=== PATIENT | male | born 1975 | race Caucasian/White ===

== ENCOUNTER 2016-11-30 11:50 | Emergency (ER) | payer MEDICAID, OTHER ==
[~2016-11-30 11:50] MED LIST: ALPR2TAB3 PO; CARI350T20 PO; CELE20TA PO; DOXY100C PO; FLEXERIL; HYDR-3713 PO; IBUP60TA PO; NICO21DI5 TD; PENI1TAB17 PO; TRAM50TA2; VICO5TAB16 PO; VITA50003 PO; XARE15TA PO; ZANT1TAB PO; ZOFR20TA PO
--- NOTE | 2016-11-30 12:51 | EDDOCDS ---
Physician Documentation [facility] Name: Rylan Da Silva Age: 40 yrs Sex: Male : 1975 Arrival Date: 11/30/2016 Time: 11:50 Bed Triage 2 Private MD: Monty Noble D Disposition: 11/30/16 12:43 Discharged to Home/Self Care. Impression: Local infection of the skin and subcutaneous tissue, unspecified - Right Axillary region. - Condition is Stable. - Prescriptions for Ibuprofen 600 mg Oral Tablet - take 1 tablet by ORAL route every 6 hours As needed take with food; 30 tablet. Bactrim DS 800- 160 mg Oral Tablet - take 2 tablet by ORAL route every 12 hours for 7 days; 28 tablet. - Medication Reconciliation, Local Pharmacy Hours form. - Follow up: Monty Noble; When: 1 - 2 days; Reason: Recheck today's complaints, Continuance of care. Follow up: Emergency Department; Reason: Worsening of conditions. - Problem is new. - Symptoms are unchanged. Historical: - Allergies: No known drug Allergies; - Home Meds: 1. olanzapine 10 mg oral tab 1 tab once daily HS - PMHx: Anxiety; chronic back pain; DVT; - PSHx: left arm abscess removed; - Social history: Smoking status: Patient uses tobacco products, light tobacco smoker. No barriers to communication noted, The patient speaks fluent Greenlandic, Speaks appropriately for age. - Family history: Not pertinent. - : The pt / caregiver states he / she is not on anticoagulants. Home medication list is obtained from the patient. - Exposure Risk Screening:: None identified. Vital Signs: 11/30 11:51 BP 145 / 84 LA Sitting (auto/reg); Pulse 96 LA; Resp 18 S; Temp 97.5(O); Pulse Ox 99% mt4 on R/A; Weight 83.91 kg / 184.99 lbs (R); Height 5 ft. 11 in. (180.34 cm) (R); Pain 9/10; 11:51 Body Mass Index 25.80 (83.91 kg, 180.34 cm) mt4 MDM: 12:17 [facility] Payment Agreement was scanned into [employer] and attached to record. 12:35 Financial registration complete. Signatures: Gilma Foster, Reg Reg lg Gala Flores,RN RN jo3 Judith Tran, PA-C PA-C ef1 Anahy Sheehan RN RN pml The chart was reviewed and I authenticate all verbal orders and agree with the evaluation and treatment provided.Attachments: 12:17 [facility] Payment Agreement lg MTDD
--- NOTE | 2016-11-30 12:51 | EDDOCDS ---
Nurse's Notes [facility] Name: Rylan Da Silva Age: 40 yrs Sex: Male : 1975 Arrival Date: 11/30/2016 Time: 11:50 Bed Triage 2 Private MD: Monty Noble D Diagnosis: Local infection of the skin and subcutaneous tissue, unspecified-Right Axillary region Presentation: 11/30 12:00 Presenting complaint: Patient states: Large reddened lump under right axilla. Has had a jo3 small lump there off and on for two years. Opened up and drained two years ago. Adult Sepsis Screening: The patient does not have new or worsening altered mentation. Adult Sepsis Screening: Systolic blood pressure is greater than 100. Patient has a qSOFA score of 0- Negative Sepsis Screen. Suicide/Homicide risk assessment- the patient denies having any suicidal and/or homicidal ideations and does not present with any other emotional, behavioral or mental health complaints. Status: Patient is not a employee service officer or dependent. Transition of care: patient was not received from another setting of care. 12:00 Acuity: ROSIE Level 3 jo3 12:00 Method Of Arrival: Walkin/Carried/Asstd jo3 Triage Assessment: 12:06 General: Appears in no apparent distress, Behavior is appropriate for age, cooperative. jo3 Pain: Pain currently is 9 out of 10 on a pain scale. HIV screening NA for this visit Offered previously. Neurological: Level of Consciousness is awake, alert, Oriented to person, place, time. Respiratory: No deficits noted. Airway is patent Respiratory effort is even, unlabored. Historical: - Allergies: No known drug Allergies; - Home Meds: 1. olanzapine 10 mg oral tab 1 tab once daily HS - PMHx: Anxiety; chronic back pain; DVT; - PSHx: left arm abscess removed; - Social history: Smoking status: Patient uses tobacco products, light tobacco smoker. No barriers to communication noted, The patient speaks fluent Turkish, Speaks appropriately for age. - Family history: Not pertinent. - : The pt / caregiver states he / she is not on anticoagulants. Home medication list is obtained from the patient. - Exposure Risk Screening:: None identified. Screenin:12 Screening information is obtained from the patient. Fall risk: No risks identified. kr3 Assistance ADL's: requires no assistance with activities of daily living. Abuse/DV Screen: The patient / caregiver reports he/she is: not in a situation that causes fear, pain or injury. Nutritional screening: No deficits noted. Advance Directives: Currently, there is no health care proxy. home support is adequate. Assessment: 12:11 General: Appears uncomfortable. Pain: Location: right axilla. Derm: large red swollen kr3 area right axilla. 12:49 General: Appears in no apparent distress, Behavior is appropriate for age, cooperative. pml Pain: Location: right axilla Pain currently is 10 out of 10 on a pain scale. Neurological: Level of Consciousness is awake, alert, Oriented to person, place, time. Cardiovascular: Capillary refill < 3 seconds. Respiratory: Airway is patent Respiratory effort is even, unlabored, Respiratory pattern is regular, symmetrical. Derm: Skin is pink, warm & dry. Vital Signs: 11:51 BP 145 / 84 LA Sitting (auto/reg); Pulse 96 LA; Resp 18 S; Temp 97.5(O); Pulse Ox 99% mt4 on R/A; Weight 83.91 kg (R); Height 5 ft. 11 in. (180.34 cm) (R); Pain 9/10; 11:51 Body Mass Index 25.80 (83.91 kg, 180.34 cm) mt4 Vitals: 11:51 Log In Time: November 30, 2016 at 11:50. mt4 ED Course: 11:50 Patient visited by Monserrat Rivera. mt4 11:50 Patient moved to Waiting mt4 11:51 Monty Noble is Private Physician. mt4 11:53 Patient moved to Pre RCE mt4 12:03 Triage Initiated jo3 12:08 Patient visited by Gala Flores RN. jo3 12:09 Patient moved to Triage 2 jo3 12:17 Patient name changed from Rylan\S\J\S\Rekha Iii\S\ to Rylan\S\J\S\Rekha. EDMS 12:17 [facility] Payment Agreement was scanned into [employer] and attached to record. lg 12:27 Judith Tran PA-C [facility]. ef1 12:27 Ken Tate MD is Attending Physician. ef1 12:28 Patient visited by Judith Tran PA-C. ef1 12:43 Monty Noble is Referral Physician. ef1 12:49 The patient / caregiver is instructed regarding the plan of care and ED course. Patient pml has correct armband on for positive identification. Placed in gown. Bed in low position. Call light in reach. Side rails up X2. 12:49 No IV's were initiated during this patient's visit. No procedures done that require pml assistance. Order Results: There are currently no results for this order. Outcome: 12:43 Discharge ordered by Provider. ef1 12:49 Discharge Assessment: Patient awake, alert and oriented x 3. No cognitive and/or pml functional deficits noted. Patient verbalized understanding of disposition instructions. patient administered narcotics - no. The following High Risk Discharge criteria are identified: None. Discharged to home ambulatory. Condition: good Condition: stable. Discharge instructions given to patient, Instructed on discharge instructions, follow up and referral plans. medication usage, wound care, Demonstrated understanding of instructions, medications, Pt was receptive of discharge instructions/ teaching. Prescriptions given X 2. No special radiology studies were completed. Property sent home with patient. 12:50 Patient left the ED. pml Signatures: Dispatcher [employer] EDMS Gilma Foster, Reg Reg lg Saba Huerta,RN RN olegario3 Gala FloresRN RN Monserrat Campbell mt4 Judith Tran PA-C PA-C ef1 Anahy Sheehan RN RN pml MTDD
--- NOTE | 2016-12-02 13:52 | EDDOCDS ---
Physician Documentation [facility] Name: Rylan Da Silva Age: 40 yrs Sex: Male : 1975 Arrival Date: 11/30/2016 Time: 11:50 Bed Triage 2 Private MD: Monty Noble D Disposition: 11/30/16 12:43 Discharged to Home/Self Care. Impression: Local infection of the skin and subcutaneous tissue, unspecified - Right Axillary region. - Condition is Stable. - Prescriptions for Ibuprofen 600 mg Oral Tablet - take 1 tablet by ORAL route every 6 hours As needed take with food; 30 tablet. Bactrim DS 800- 160 mg Oral Tablet - take 2 tablet by ORAL route every 12 hours for 7 days; 28 tablet. - Medication Reconciliation, Local Pharmacy Hours form. - Follow up: Monty Noble; When: 1 - 2 days; Reason: Recheck today's complaints, Continuance of care. Follow up: Emergency Department; Reason: Worsening of conditions. - Problem is new. - Symptoms are unchanged. Historical: - Allergies: No known drug Allergies; - Home Meds: 1. olanzapine 10 mg oral tab 1 tab once daily HS - PMHx: Anxiety; chronic back pain; DVT; - PSHx: left arm abscess removed; - Social history: Smoking status: Patient uses tobacco products, light tobacco smoker. No barriers to communication noted, The patient speaks fluent Macedonian, Speaks appropriately for age. - Family history: Not pertinent. - : The pt / caregiver states he / she is not on anticoagulants. Home medication list is obtained from the patient. - Exposure Risk Screening:: None identified. Vital Signs: 11/30 11:51 BP 145 / 84 LA Sitting (auto/reg); Pulse 96 LA; Resp 18 S; Temp 97.5(O); Pulse Ox 99% mt4 on R/A; Weight 83.91 kg / 184.99 lbs (R); Height 5 ft. 11 in. (180.34 cm) (R); Pain 9/10; 11:51 Body Mass Index 25.80 (83.91 kg, 180.34 cm) mt4 MDM: 12:17 [facility] Payment Agreement was scanned into [employer] and attached to record. lg 12:35 Financial registration complete. lg 19:39 T-Sheet-- Draft Copy was scanned into [employer] and attached to record. klr Signatures: Gilma Foster, Reg Reg lg Gala Flores RN RN jo3 Judith Tran, PASholaC PASholaC ef1 Anahy Sheehan RN RN pml Redder, Kathie klr The chart was reviewed and I authenticate all verbal orders and agree with the evaluation and treatment provided.Attachments: 12:17 [facility] [place] lg 19:39 T-Sheet-- Draft Copy klr Chart Complete MTDD
--- NOTE | 2016-12-02 13:52 | EDDOCDS ---
Nurse's Notes [facility] Name: Rylan Da Silva Age: 40 yrs Sex: Male : 1975 Arrival Date: 11/30/2016 Time: 11:50 Bed Triage 2 Private MD: Monty Noble D Diagnosis: Local infection of the skin and subcutaneous tissue, unspecified-Right Axillary region Presentation: 11/30 12:00 Presenting complaint: Patient states: Large reddened lump under right axilla. Has had a jo3 small lump there off and on for two years. Opened up and drained two years ago. Adult Sepsis Screening: The patient does not have new or worsening altered mentation. Adult Sepsis Screening: Systolic blood pressure is greater than 100. Patient has a qSOFA score of 0- Negative Sepsis Screen. Suicide/Homicide risk assessment- the patient denies having any suicidal and/or homicidal ideations and does not present with any other emotional, behavioral or mental health complaints. Status: Patient is not a creative services writer or dependent. Transition of care: patient was not received from another setting of care. 12:00 Acuity: ROSIE Level 3 jo3 12:00 Method Of Arrival: Walkin/Carried/Asstd jo3 Triage Assessment: 12:06 General: Appears in no apparent distress, Behavior is appropriate for age, cooperative. jo3 Pain: Pain currently is 9 out of 10 on a pain scale. HIV screening NA for this visit Offered previously. Neurological: Level of Consciousness is awake, alert, Oriented to person, place, time. Respiratory: No deficits noted. Airway is patent Respiratory effort is even, unlabored. Historical: - Allergies: No known drug Allergies; - Home Meds: 1. olanzapine 10 mg oral tab 1 tab once daily HS - PMHx: Anxiety; chronic back pain; DVT; - PSHx: left arm abscess removed; - Social history: Smoking status: Patient uses tobacco products, light tobacco smoker. No barriers to communication noted, The patient speaks fluent Chinese, Speaks appropriately for age. - Family history: Not pertinent. - : The pt / caregiver states he / she is not on anticoagulants. Home medication list is obtained from the patient. - Exposure Risk Screening:: None identified. Screenin:12 Screening information is obtained from the patient. Fall risk: No risks identified. kr3 Assistance ADL's: requires no assistance with activities of daily living. Abuse/DV Screen: The patient / caregiver reports he/she is: not in a situation that causes fear, pain or injury. Nutritional screening: No deficits noted. Advance Directives: Currently, there is no health care proxy. home support is adequate. Assessment: 12:11 General: Appears uncomfortable. Pain: Location: right axilla. Derm: large red swollen kr3 area right axilla. 12:49 General: Appears in no apparent distress, Behavior is appropriate for age, cooperative. pml Pain: Location: right axilla Pain currently is 10 out of 10 on a pain scale. Neurological: Level of Consciousness is awake, alert, Oriented to person, place, time. Cardiovascular: Capillary refill < 3 seconds. Respiratory: Airway is patent Respiratory effort is even, unlabored, Respiratory pattern is regular, symmetrical. Derm: Skin is pink, warm & dry. Vital Signs: 11:51 BP 145 / 84 LA Sitting (auto/reg); Pulse 96 LA; Resp 18 S; Temp 97.5(O); Pulse Ox 99% mt4 on R/A; Weight 83.91 kg (R); Height 5 ft. 11 in. (180.34 cm) (R); Pain 9/10; 11:51 Body Mass Index 25.80 (83.91 kg, 180.34 cm) mt4 Vitals: 11:51 Log In Time: November 30, 2016 at 11:50. mt4 ED Course: 11:50 Patient visited by Monserrat Rivera. mt4 11:50 Patient moved to Waiting mt4 11:51 Monty Noble is Private Physician. mt4 11:53 Patient moved to Pre RCE mt4 12:03 Triage Initiated jo3 12:08 Patient visited by Gala Flores RN. jo3 12:09 Patient moved to Triage 2 jo3 12:17 Patient name changed from Rylan\S\J\S\Rekha Iii\S\ to Rylan\S\J\S\Rekha. EDMS 12:17 [facility] Payment Agreement was scanned into [id number] and attached to record. lg 12:27 Judith Tr[facility]-C [facility] ef1 12:27 Ken Tate MD is Attending Physician. ef1 12:28 Patient visited by Judith Tran PA-C. ef1 12:43 Monty Noble is Referral Physician. ef1 12:49 The patient / caregiver is instructed regarding the plan of care and ED course. Patient pml has correct armband on for positive identification. Placed in gown. Bed in low position. Call light in reach. Side rails up X2. 12:49 No IV's were initiated during this patient's visit. No procedures done that require pml assistance. 19:39 T-Sheet-- Draft Copy was scanned into [id number] and attached to record. klr Order Results: There are currently no results for this order. Outcome: 12:43 Discharge ordered by Provider. ef1 12:49 Discharge Assessment: Patient awake, alert and oriented x 3. No cognitive and/or pml functional deficits noted. Patient verbalized understanding of disposition instructions. patient administered narcotics - no. The following High Risk Discharge criteria are identified: None. Discharged to home ambulatory. Condition: good Condition: stable. Discharge instructions given to patient, Instructed on discharge instructions, follow up and referral plans. medication usage, wound care, Demonstrated understanding of instructions, medications, Pt was receptive of discharge instructions/ teaching. Prescriptions given X 2. No special radiology studies were completed. Property sent home with patient. 12:50 Patient left the ED. pml Signatures: Dispatcher [employer] EDMS Gilma Foster, Saba Blackburn lg,RN RN olegario3 Gala Flores RN RN wayne3 Monserrat Rivera mt4 Judith Tran PA-C PA-C ef1 Anahy Sheehan RN RN pml Redder, Kathie klr Chart Complete MTDD
--- NOTE | 2016-12-02 13:52 | EDDOCDS ---
Physician Documentation [facility] Name: Rylan Da Silva Age: 40 yrs Sex: Male : 1975 Arrival Date: 11/30/2016 Time: 11:50 Bed Triage 2 Private MD: Monty Noble D Disposition: 11/30/16 12:43 Discharged to Home/Self Care. Impression: Local infection of the skin and subcutaneous tissue, unspecified - Right Axillary region. - Condition is Stable. - Prescriptions for Ibuprofen 600 mg Oral Tablet - take 1 tablet by ORAL route every 6 hours As needed take with food; 30 tablet. Bactrim DS 800- 160 mg Oral Tablet - take 2 tablet by ORAL route every 12 hours for 7 days; 28 tablet. - Medication Reconciliation, Local Pharmacy Hours form. - Follow up: Monty Noble; When: 1 - 2 days; Reason: Recheck today's complaints, Continuance of care. Follow up: Emergency Department; Reason: Worsening of conditions. - Problem is new. - Symptoms are unchanged. Historical: - Allergies: No known drug Allergies; - Home Meds: 1. olanzapine 10 mg oral tab 1 tab once daily HS - PMHx: Anxiety; chronic back pain; DVT; - PSHx: left arm abscess removed; - Social history: Smoking status: Patient uses tobacco products, light tobacco smoker. No barriers to communication noted, The patient speaks fluent Belarusian, Speaks appropriately for age. - Family history: Not pertinent. - : The pt / caregiver states he / she is not on anticoagulants. Home medication list is obtained from the patient. - Exposure Risk Screening:: None identified. Vital Signs: 11/30 11:51 BP 145 / 84 LA Sitting (auto/reg); Pulse 96 LA; Resp 18 S; Temp 97.5(O); Pulse Ox 99% mt4 on R/A; Weight 83.91 kg / 184.99 lbs (R); Height 5 ft. 11 in. (180.34 cm) (R); Pain 9/10; 11:51 Body Mass Index 25.80 (83.91 kg, 180.34 cm) mt4 MDM: 12:17 [facility] Payment Agreement was scanned into [employer] and attached to record. lg 12:35 Financial registration complete. lg 19:39 T-Sheet-- Draft Copy was scanned into [employer] and attached to record. klr Signatures: Gilma Foster, Reg Reg lg Gala Flores RN RN jo3 Judith Tran, PASholaC PASholaC ef1 Anahy Sheehan RN RN pml Redder, Kathie klr The chart was reviewed and I authenticate all verbal orders and agree with the evaluation and treatment provided.Attachments: 12:17 [facility] [place] Payment Agreement lg 19:39 T-Sheet-- Draft Copy klr Chart Complete MTDD
== END 2016-11-30 12:50 | disposition home or self-care (01) ==
LOC: M ED 11:50
DX: L08.9 Local infection of the skin and subcutaneous tissue, unspecified (principal); F41.9 Anxiety disorder, unspecified; G89.29 Other chronic pain; M54.9 Dorsalgia, unspecified; F17.210 Nicotine dependence, cigarettes, uncomplicated; Z86.718 Personal history of other venous thrombosis and embolism; Z79.899 Other long term (current) drug therapy

== ENCOUNTER → 2017-01-29 | Outpatient (CLI) | payer OTHER ==
[2017-01-29 13:35] LABS: MEAN CORPUSCULAR HEMOGLOBIN 32.5 pg (27.0-33.0); MEAN CORPUSCULAR VOLUME 95.7 fl (80.0-96.0); RED CELL DISTRIBUTION WIDTH 11.8 % (11.5-14.5); WHITE BLOOD COUNT 6.7 K/mm3 (4.0-10.0)
[2017-01-29 14:37] LABS: VITAMIN B12 LEVEL 465 PG/ML (247-911)
[2017-01-29 14:40] LABS: ALBUMIN 3.8 GM/DL (3.2-5.2); ALBUMIN/GLOBULIN RATIO 1.09 (1.00-1.93); ALKALINE PHOSPHATASE 61 U/L (45-117); ALT/SGPT 31 U/L (12-78); ANION GAP 6 MEQ/L (8-16); AST/SGOT 21 U/L (15-37); BILIRUBIN,DIRECT 0.2 MG/DL (0.0-0.2); BILIRUBIN,TOTAL 0.5 MG/DL (0.2-1.0); BLOOD UREA NITROGEN 10 MG/DL (7-18); CALCIUM LEVEL 9.1 MG/DL (8.5-10.1); CARBON DIOXIDE LEVEL 25 MEQ/L (21-32); CHLORIDE LEVEL 110 MEQ/L (98-107); CREATININE FOR GFR 0.99 MG/DL (0.70-1.30); FREE T4 1.11 NG/DL (0.76-1.46); GLOMERULAR FILTRATION RATE > 60.0 (>60); GLUCOSE, FASTING 104 MG/DL (70-105); IMMUNOGLOBULIN M 141 MG/DL (40-230); POTASSIUM SERUM 4.2 MEQ/L (3.5-5.1); SODIUM LEVEL 141 MEQ/L (136-145); TOTAL PROTEIN 7.3 GM/DL (6.4-8.2)
[2017-02-03 00:06] LABS: B. HENSELAE IgG (CAT SCRATCH) Negative titer (Neg:<1:320); B. HENSELAE IgM (CAT SCRATCH) Negative titer (Neg:<1:100); B. QUINTANA IgG (CAT SCRATCH) Negative titer (Neg:<1:320); B. QUINTANA IgM (CAT SCRATCH) Negative titer (Neg:<1:100); BABESIOSIS LEVEL IGG <1:10 (Neg:<1:10); BABESIOSIS LEVEL IGM <1:10 (Neg:<1:10); E CHAFFEENSIS IgG TITER Negative (Neg:<1:64); E CHAFFEENSIS IgM TITER Negative (Neg:<1:20); HUMAN GRANULCYTIC EHRLIC IgG Negative (Neg:<1:64); HUMAN GRANULCYTIC EHRLIC IgM Negative (Neg:<1:20); Lyme Disease IgG/IgM Antibodie <0.91 ISR (0.00-0.90); Lyme Disease IgM Ab Quantitati <0.80 index (0.00-0.79)
== END ==
LOC: M LAB 12:21
PROVIDERS: ATTEND Nurse Practitioner Psychiatric/Mental Health
DX: Z79.899 Other long term (current) drug therapy (principal)

== ENCOUNTER 2017-02-16 13:25 | Emergency (ER) | payer OTHER ==
[~2017-02-16] VITALS: Ht 180.3 cm; Wt 74.8 kg
[2017-02-16 13:26] VITALS: BP 119/73
[2017-02-16] MEDS ORDERED: ZYPR10TA PO (13:42)
[2017-02-16] MEDS ORDERED: CLON-412 PO (13:42)
[2017-02-16] MEDS ORDERED: WELLTAB40 PO (13:42)
== END 2017-02-16 14:20 | disposition home or self-care (01) ==
LOC: M ED 14:18
DX: L73.2 Hidradenitis suppurativa (principal); N62 Hypertrophy of breast; I10 Essential (primary) hypertension; B19.20 Unspecified viral hepatitis C without hepatic coma; M54.9 Dorsalgia, unspecified; F31.9 Bipolar disorder, unspecified; F41.9 Anxiety disorder, unspecified; Z79.899 Other long term (current) drug therapy; Z88.8 Allergy status to other drugs, medicaments and biological substances

== ENCOUNTER → 2017-04-29 | Outpatient (REF) ==
[~2017-04-29] MED LIST changes: +CLON-412 PO; +LITH150C PO; +NAPR500T PO; +WELLTAB40 PO; +ZYPR10TA PO
--- NOTE | 2017-04-30 02:56 | REP ---
Clinical: Pain and disability. Technique: AP, lateral, coned-down views of the lumbar spine. Findings: Three views of the lumbosacral spine demonstrate satisfactory alignment and lordosis without acute fracture / compression injury or subluxation. Mild endplate sclerosis and disc space narrowing primarily noted at the L5-S1 level. Impression: Mild disc space narrowing predominantly noted at the L5-S1 level. No acute fracture / compression injury or subluxation. Signed by Eliud Kaye MD 04/30/2017 02:48 A
--- NOTE | 2017-04-30 02:59 | REP ---
Clinical: Pain and disability. Technique: AP, lateral, open mouth views of the cervical spine. Findings: Alignment and lordosis maintained. No evidence for acute or healed fracture/compression injury. No subluxation. Moderate endplate sclerosis and disc space narrowing at the C5-6 level noted along with minimal disc space narrowing at the C4-5 level. Spinous processes are intact and normal. Open mouth view demonstrates normal C1-C2 articulation and odontoid process. Impression: Mild to moderate degenerative changes primarily involving the C5-6 and C4-5 levels. Signed by Eliud Kaye MD 04/30/2017 02:50 A
== END ==
LOC: M SMT 10:40
PROVIDERS: ATTEND Internal Medicine
DX: Z02.89 Encounter for other administrative examinations (principal)

== ENCOUNTER 2017-05-04 16:17 | Emergency (ER) | payer OTHER ==
[~2017-05-04] VITALS: Ht 180.3 cm; Wt 82.4 kg
[~2017-05-04 16:17] MED LIST changes: +CARI350T PO; -CARI350T20 PO; -LITH150C PO; -NAPR500T PO; +VITA1CAP40 PO; -VITA50003 PO
[2017-05-04] MEDS ORDERED: LITH150C PO (16:32)
[2017-05-04] MEDS ORDERED: NORCO, ANEXSIA 5/325MG TABLET (HYDROcodone/ACETAMINOPHEN) PO ONE (17:00)
--- NOTE | 2017-05-04 17:24 | REP ---
Clinical: Pain . Technique: Internal rotation, external rotation, and Y view left shoulder . Findings: No acute fracture or dislocation. The acromioclavicular and glenohumeral joints are intact. No periarticular calcifications or degenerative changes are appreciated. Sub acromial space is normal. Surrounding soft tissues are unremarkable. Impression: Normal age-appropriate left shoulder radiographs. Signed by Eliud Kaye MD 05/04/2017 05:16 P
[2017-05-04 18:03] VITALS: BP 120/71
[2017-05-04] MEDS ORDERED: NAPR500T PO (18:03)
== END 2017-05-04 18:17 | disposition home or self-care (01) ==
LOC: M ED 17:03
DX: M75.42 Impingement syndrome of left shoulder (principal); F17.210 Nicotine dependence, cigarettes, uncomplicated; Z79.899 Other long term (current) drug therapy; Z88.8 Allergy status to other drugs, medicaments and biological substances

== ENCOUNTER → 2017-05-26 | Outpatient (CLI) | payer OTHER ==
[~2017-05-26] MED LIST changes: +LITH150C PO; +NAPR500T PO
[2017-05-26 14:51] LABS: LITHIUM LEVEL 0.39 MEQ/L (0.60-1.20)
== END ==
LOC: M LAB 13:18
PROVIDERS: ATTEND Psychiatry & Neurology Psychiatry
DX: Z79.899 Other long term (current) drug therapy (principal)

== ENCOUNTER → 2017-07-09 | Outpatient (CLI) | payer OTHER ==
[2017-07-09 12:57] LABS: MEAN CORPUSCULAR HEMOGLOBIN 33.9 pg (27.0-33.0); MEAN CORPUSCULAR HGB CONC 34.8 g/dl (32.0-36.5); MEAN CORPUSCULAR VOLUME 97.2 fl (80.0-96.0); WHITE BLOOD COUNT 9.2 K/mm3 (4.0-10.0)
[2017-07-09 14:12] LABS: ALBUMIN 3.9 GM/DL (3.2-5.2); ALBUMIN/GLOBULIN RATIO 0.98 (1.00-1.93); ALKALINE PHOSPHATASE 66 U/L (45-117); ALT/SGPT 89 U/L (12-78); ANION GAP 6 MEQ/L (8-16); AST/SGOT 52 U/L (15-37); BILIRUBIN,TOTAL 0.4 MG/DL (0.2-1.0); BLOOD UREA NITROGEN 9 MG/DL (7-18); CALCIUM LEVEL 9.5 MG/DL (8.5-10.1); CARBON DIOXIDE LEVEL 29 MEQ/L (21-32); CHLORIDE LEVEL 105 MEQ/L (98-107); CHOLESTEROL LEVEL 193 MG/DL (<200); CREATININE FOR GFR 0.86 MG/DL (0.70-1.30); FREE T4 1.02 NG/DL (0.76-1.46); GLOMERULAR FILTRATION RATE > 60.0 (>60); GLUCOSE, FASTING 86 MG/DL (70-105); POTASSIUM SERUM 4.1 MEQ/L (3.5-5.1); SODIUM LEVEL 140 MEQ/L (136-145); TOTAL PROTEIN 7.9 GM/DL (6.4-8.2); TRIGLYCERIDES LEVEL 354 MG/DL (<150)
--- NOTE | 2017-07-09 20:57 | ECGEPIP ---
Stationary ECG Study [facility] Test Date: 2017-07-09 Pat Name: PATRICIA MACIAS Department: Room: - Gender: M Folding Machine Operator: SUNSHINE : 1975 Requested By: Amber Montalvo [facility] Order Number: [id number] Reading MD: Bernardo Jenkins Measurements Intervals [place] Rate: 79 P: 47 MN: 116 QRS: 84 QRSD: 118 T: 48 QT: 404 QTc: 464 Interpretive Statements SINUS RHYTHM WITH SHORT MN INTERVAL MODERATE INTRAVENTRICULAR CONDUCTION DELAY ST ELEVATION CONSISTENT WITH INJURY, PERICARDITIS, OR EARLY REPOLARIZATION No prior ECG available for comparison at the time of interpretation. Electronically Signed On 07-09-2017 20:57:12 EDT by Bernardo Jenkins
[2017-07-10 11:22] LABS: THYROID PEROXIDASE ANTIBODY < 28.0 U/ML (<60.0)
--- NOTE | 2017-07-10 14:28 | REP ---
Clinical: Chest pain . Comparison: 10/19/2013, 07/23/2011. Technique: PA and lateral. Findings: The mediastinum and cardiac silhouette are normal. The lung botello are clear and without acute consolidation, effusion, or pneumothorax. The skeletal structures are intact and normal. Impression: 1. No acute cardiopulmonary process. Signed by Eliud Kaye MD 07/09/2017 08:41 P
[2017-07-16 00:06] LABS: ALT 78 IU/L (0-55); FIBROSIS STAGE F0-F1 (.); GGT 56 IU/L (0-65); HAPTOGLOBIN 99 mg/dL (34-200); HEPATITIS C QUANTITATION 1621840 IU/mL (.); HEPATITIS C VIRUS GENOTYPE 1a (.); NECROINFLAM SCORE 0.44 (0.00-0.17); NECROINFLAMM GRADE A1-A2 (.); TOTAL BILIRUBIN 0.3 mg/dL (0.0-1.2)
== END ==
LOC: M LAB 11:00
PROVIDERS: ATTEND Nurse Practitioner Family
DX: R07.9 Chest pain, unspecified (principal); Z13.220 Encounter for screening for lipoid disorders; B17.10 Acute hepatitis C without hepatic coma; R89.1 Abnormal level of hormones in specimens from other organs, systems and tissues; R39.11 Hesitancy of micturition

== ENCOUNTER → 2017-07-09 | Outpatient (CLI) | payer OTHER ==
[2017-07-09 14:20] LABS: ALBUMIN 3.9 GM/DL (3.2-5.2); ALKALINE PHOSPHATASE 65 U/L (45-117); ALT/SGPT 88 U/L (12-78); ANION GAP 9 MEQ/L (8-16); AST/SGOT 53 U/L (15-37); BILIRUBIN,TOTAL 0.3 MG/DL (0.2-1.0); BLOOD UREA NITROGEN 10 MG/DL (7-18); CALCIUM LEVEL 9.5 MG/DL (8.5-10.1); CARBON DIOXIDE LEVEL 26 MEQ/L (21-32); CHLORIDE LEVEL 104 MEQ/L (98-107); CREATININE FOR GFR 0.91 MG/DL (0.70-1.30); GLOMERULAR FILTRATION RATE > 60.0 (>60); GLUCOSE, FASTING 90 MG/DL (70-105); POTASSIUM SERUM 4.1 MEQ/L (3.5-5.1); SODIUM LEVEL 139 MEQ/L (136-145); TOTAL PROTEIN 7.8 GM/DL (6.4-8.2)
[2017-07-09 14:21] LABS: LITHIUM LEVEL 0.65 MEQ/L (0.60-1.20)
== END ==
LOC: M LAB 11:05
PROVIDERS: ATTEND Psychiatry & Neurology Psychiatry
DX: Z79.899 Other long term (current) drug therapy (principal)

== ENCOUNTER → 2017-08-25 | Outpatient (REF) | payer OTHER ==
[2017-08-25 16:10] LABS: ALBUMIN 4.3 GM/DL (3.2-5.2); ALBUMIN/GLOBULIN RATIO 1.26 (1.00-1.93); ALKALINE PHOSPHATASE 60 U/L (45-117); ALT/SGPT 62 U/L (12-78); AST/SGOT 32 U/L (15-37); BILIRUBIN,DIRECT 0.1 MG/DL (0.0-0.2); BILIRUBIN,TOTAL 0.5 MG/DL (0.2-1.0); TOTAL PROTEIN 7.7 GM/DL (6.4-8.2)
[2017-08-26 10:52] LABS: HEPATITIS B SURFACE ANTIBODY NEGATIVE (POSITIVE)
[2017-09-09 00:06] LABS: HCV GENOTYPE REFLEX NS5QA Indicated (.); HEPATITIS C GENOTYPE 1a (.); HEPATITIS C QUANTITATION 488430 IU/mL (.)
== END ==
LOC: M SFHCPLAZ 13:55
PROVIDERS: ATTEND Internal Medicine Infectious Disease
DX: B18.2 Chronic viral hepatitis C (principal)

== ENCOUNTER → 2017-11-25 | Outpatient (REF) | payer OTHER, MEDICAID | LOC: M LAB REF 20:17 | DX: F11.10 Opioid abuse, uncomplicated (principal) ==

== ENCOUNTER → 2017-12-02 | Outpatient (REF) | payer OTHER, MEDICAID ==
[2017-12-08 00:07] LABS: AMPHETAMINE SCREEN, URINE See Final Results ng/mL (Cutoff=1000); AMPHETAMINE, URINE GC/MS 3930 ng/mL (Cutoff=500); AMPHETAMINES , URINE Positive (.); AMPHETAMINES , URINE Positive (Cutoff=1000); BARBITURATES SCREEN, URINE Negative ng/mL (Cutoff=200); BENZODIAZEPINES, URINE SCREEN Negative ng/mL (Cutoff=200); CANNABINOID SCREEN, URINE Negative ng/mL (Cutoff=20); COCAINE SCREEN, URINE Negative ng/mL (Cutoff=300); CODEINE, URINE Negative (Cutoff=100); CREATININE, URINE 108.2 mg/dL (20.0-300.0); FENTANYL URINE Positive (.); FENTANYL URINE CONFIRM 15040 pg/mL (Cutoff=500); FENTANYL URINE SCREEN See Final Results pg/mL (Cutoff=2000); FENTANYL/NORFENTANYL Positive (Cutoff=2000); HYDROCODONE, URINE Negative (Cutoff=100); HYDROMORPHONE, URINE Negative (Cutoff=100); METHADONE, URINE SCREEN Negative ng/mL (Cutoff=300); METHAMPHETAMINE, URINE Positive (.); METHAMPHETAMINE, URINE GC/MS 20530 ng/mL (Cutoff=500); MORPHINE CONFIRM, URINE 5527 ng/mL (Cutoff=100); MORPHINE, URINE Positive (.); NALOXONE RESULT Negative (.); NORFENTANYL URINE Positive (.); NORFENTANYL URINE CONFIRM 432650 pg/mL (Cutoff=500); OPIATE SCREEN, URINE See Final Results ng/mL (Cutoff=300); OPIATES, URINE Positive ng/mL (Cutoff=300); OXYCODONE, SCREEN, URINE Negative ng/mL (Cutoff=100); PCP SCREEN, URINE Negative ng/mL (Cutoff=25); URINE BUPRENORPHINE Negative ng/mL (Cutoff=10); pH, URINE 6.1 (4.5-8.9)
== END ==
LOC: M LAB REF 19:36
DX: F11.10 Opioid abuse, uncomplicated (principal)
CPT/HCPCS: 80362

== ENCOUNTER 2018-01-11 11:14 | Emergency (ER) | payer OTHER, MEDICAID | END 2018-01-11 12:45 | disposition home or self-care (01) | LOC: M ED 11:14 | DX: J01.90 Acute sinusitis, unspecified (principal); I10 Essential (primary) hypertension; F17.210 Nicotine dependence, cigarettes, uncomplicated; Z79.899 Other long term (current) drug therapy; Z88.8 Allergy status to other drugs, medicaments and biological substances; Z86.718 Personal history of other venous thrombosis and embolism; Z98.890 Other specified postprocedural states | CPT/HCPCS: 99283 ==

== ENCOUNTER → 2018-01-11 | Outpatient (REF) | payer OTHER, MEDICAID | LOC: M LAB REF 19:23 | DX: F11.10 Opioid abuse, uncomplicated (principal) ==

== ENCOUNTER → 2018-01-19 | Outpatient (REF) | payer OTHER, MEDICAID ==
[2018-01-24 00:09] LABS: AMPHETAMINE SCREEN, URINE Negative ng/mL (Cutoff=1000); BARBITURATES SCREEN, URINE Negative ng/mL (Cutoff=200); BENZODIAZEPINES, URINE SCREEN Negative ng/mL (Cutoff=200); CANNABINOID SCREEN, URINE Negative ng/mL (Cutoff=20); COCAINE SCREEN, URINE Negative ng/mL (Cutoff=300); CREATININE, URINE 22.8 mg/dL (20.0-300.0); FENTANYL URINE SCREEN Negative pg/mL (Cutoff=2000); METHADONE, URINE SCREEN Negative ng/mL (Cutoff=300); NALOXONE RESULT Negative (.); OPIATE SCREEN, URINE Negative ng/mL (Cutoff=300); OXYCODONE, SCREEN, URINE Negative ng/mL (Cutoff=100); PCP SCREEN, URINE Negative ng/mL (Cutoff=25); SPECIFIC GRAVITY, URINE 1.009 (.); URINE BUPRENORPHINE Negative ng/mL (Cutoff=10); pH, URINE 7.9 (4.5-8.9)
== END ==
LOC: M LAB REF 15:55
DX: F11.10 Opioid abuse, uncomplicated (principal)
CPT/HCPCS: 80362

== ENCOUNTER → 2018-01-26 | Outpatient (REF) | payer OTHER, MEDICAID | LOC: M LAB REF 16:42 | DX: F11.10 Opioid abuse, uncomplicated (principal) ==

== ENCOUNTER 2018-01-28 11:00 | Emergency (ER) | payer OTHER, MEDICAID ==
[2018-01-28 13:22] LABS: BASO % 0.1 % (0.0-1.0); EOS # 0.1 10^3/uL (0.0-0.50); EOS % 0.5 % (0.0-3.0); HEMATOCRIT 47.1 % (42.0-52.0); HEMOGLOBIN 15.9 g/dl (14.0-18.0); IMMATURE GRANULOCYTE % 0.4 % (0-3.0); LYMPH % 14.6 % (24.0-44.0); MEAN CORPUSCULAR HEMOGLOBIN 32.2 pg (27.0-33.0); MEAN CORPUSCULAR HGB CONC 33.8 g/dl (32.0-36.5); MEAN CORPUSCULAR VOLUME 95.3 fl (80.0-96.0); MONO # 0.9 10^3/uL (0.0-0.8); MONO % 6.8 % (0.0-5.0); NEUTROPHILS # 10.4 10^3/uL (1.8-7.7); NEUTROPHILS % 77.6 % (36.0-66.0); PLATELET COUNT, AUTOMATED 276 10^3/uL (150-450); RED BLOOD COUNT 4.94 10^6/uL (4.30-6.10); RED CELL DISTRIBUTION WIDTH 13.2 % (11.5-14.5); WHITE BLOOD COUNT 13.4 10^3/uL (4.0-10.0)
[2018-01-28 13:34] LABS: INR 0.96; PARTIAL THROMBOPLASTIN TIME 27.9 SECONDS (26.8-37.9); PROTHROMBIN TIME 12.8 SECONDS (12.4-14.5)
[2018-01-28 13:42] LABS: ANION GAP 4 MEQ/L (8-16); BLOOD UREA NITROGEN 9 MG/DL (7-18); CALCIUM LEVEL 9.3 MG/DL (8.5-10.1); CARBON DIOXIDE LEVEL 25 MEQ/L (21-32); CHLORIDE LEVEL 110 MEQ/L (98-107); GLOMERULAR FILTRATION RATE > 60.0 (>60); GLUCOSE, FASTING 103 MG/DL (70-100); POTASSIUM SERUM 4.3 MEQ/L (3.5-5.1); SODIUM LEVEL 139 MEQ/L (136-145)
[2018-01-28 13:45] LABS: LACTIC ACID SEPSIS PROTOCOL 1.3 MMOL/L (0.4-2.0)
[2018-01-28 14:02] LABS: ERYTHROCYTE SEDIMENTATION RATE 8 mm/hr (0-15)
[2018-01-28] MEDS: BACTRIM 160MG/800MG DS TAB PO (14:45)
== END 2018-01-28 15:06 | disposition home or self-care (01) ==
LOC: M ED 11:00
DX: L03.114 Cellulitis of left upper limb (principal); F11.188 Opioid abuse with other opioid-induced disorder; F17.210 Nicotine dependence, cigarettes, uncomplicated; Z79.899 Other long term (current) drug therapy; Z86.718 Personal history of other venous thrombosis and embolism
CPT/HCPCS: 93971

== ENCOUNTER → 2018-03-12 | Outpatient (CLI) | payer OTHER ==
[2018-03-12 14:57] LABS: HEMATOCRIT 41.5 % (42.0-52.0); HEMOGLOBIN 14.4 g/dl (13.5-17.5); MEAN CORPUSCULAR HEMOGLOBIN 32.7 pg (27.0-33.0); MEAN CORPUSCULAR HGB CONC 34.7 g/dl (32.0-36.5); MEAN CORPUSCULAR VOLUME 94.1 fl (80.0-96.0); PLATELET COUNT, AUTOMATED 261 10^3/uL (150-450); RED BLOOD COUNT 4.41 10^6/uL (4.30-6.10); RED CELL DISTRIBUTION WIDTH 11.7 % (11.5-14.5); WHITE BLOOD COUNT 9.4 10^3/uL (4.0-10.0)
[2018-03-12 15:21] LABS: ALBUMIN/GLOBULIN RATIO 1.18 (1.00-1.93); ALKALINE PHOSPHATASE 61 U/L (45-117); ALT/SGPT 27 U/L (12-78); ANION GAP 8 MEQ/L (8-16); AST/SGOT 21 U/L (7-37); BILIRUBIN,TOTAL 0.7 MG/DL (0.2-1.0); BLOOD UREA NITROGEN 9 MG/DL (7-18); CALCIUM LEVEL 8.8 MG/DL (8.5-10.1); CARBON DIOXIDE LEVEL 28 MEQ/L (21-32); CHLORIDE LEVEL 102 MEQ/L (98-107); CREATININE FOR GFR 1.17 MG/DL (0.70-1.30); GLOMERULAR FILTRATION RATE > 60.0 (>60); GLUCOSE, FASTING 110 MG/DL (70-100); SODIUM LEVEL 138 MEQ/L (136-145); TOTAL PROTEIN 7.4 GM/DL (6.4-8.2)
[2018-03-12 16:47] LABS: CHLAMYDIA DNA AMPLIFICATION NEGATIVE (NEGATIVE); GC DNA AMPLIFICATION NEGATIVE (NEGATIVE)
[2018-03-15 10:29] LABS: HEPATITIS B SURFACE ANTIGEN NEGATIVE (NEGATIVE)
[2018-03-15 10:57] LABS: HIV 1&2 SCREEN CENTAUR NEGATIVE (NEGATIVE)
[2018-03-15 11:09] LABS: HEPATITIS C VIRUS ABY INDEX > 11.0 INDEX (<0.8)
== END ==
LOC: M LAB 14:28
DX: F11.20 Opioid dependence, uncomplicated (principal)
CPT/HCPCS: 93005

== ENCOUNTER 2018-03-30 12:27 | Emergency (ER) | payer OTHER ==
[2018-03-30] MEDS: ONDANSETRON 4 MG ORAL DISINTEGRATING TAB (Q0162 PER 1MG) PO (15:42)
== END 2018-03-30 15:41 | disposition home or self-care (01) ==
LOC: M ED 12:27
DX: R11.2 Nausea with vomiting, unspecified (principal); R19.7 Diarrhea, unspecified; I10 Essential (primary) hypertension; B18.2 Chronic viral hepatitis C; F17.210 Nicotine dependence, cigarettes, uncomplicated; M54.9 Dorsalgia, unspecified; G89.29 Other chronic pain; Z79.899 Other long term (current) drug therapy
CPT/HCPCS: Q0162

== ENCOUNTER → 2018-09-06 | Outpatient (CLI) | payer OTHER ==
[2018-09-06 13:42] LABS: HEMATOCRIT 42.6 % (42.0-52.0); HEMOGLOBIN 14.6 g/dl (13.5-17.5); MEAN CORPUSCULAR HEMOGLOBIN 31.3 pg (27.0-33.0); MEAN CORPUSCULAR HGB CONC 34.3 g/dl (32.0-36.5); MEAN CORPUSCULAR VOLUME 91.4 fl (80.0-96.0); PLATELET COUNT, AUTOMATED 237 10^3/uL (150-450); RED BLOOD COUNT 4.66 10^6/uL (4.30-6.10); RED CELL DISTRIBUTION WIDTH 11.9 % (11.5-14.5); WHITE BLOOD COUNT 6.4 10^3/uL (4.0-10.0)
[2018-09-06 14:29] LABS: ALBUMIN 3.7 GM/DL (3.2-5.2); ALBUMIN/GLOBULIN RATIO 1.12 (1.00-1.93); ALKALINE PHOSPHATASE 66 U/L (45-117); ALT/SGPT 24 U/L (12-78); AST/SGOT 33 U/L (7-37); BILIRUBIN,DIRECT 0.2 MG/DL (0.0-0.2); BILIRUBIN,TOTAL 0.5 MG/DL (0.2-1.0); VALPROIC ACID (DEPAKOTE) 42.4 UG/ML (50.0-100.0)
== END ==
LOC: M LAB 12:53
DX: Z51.81 Encounter for therapeutic drug level monitoring (principal); F63.81 Intermittent explosive disorder
CPT/HCPCS: 80164

== ENCOUNTER → 2018-11-05 | Outpatient (CLI) | payer OTHER ==
[~2018-11-05] MED LIST changes: +AUGM875T28 PO; +BACT800T5 PO; +CARI1TAB7 PO; -CARI350T PO; +CYCL10TA PO; +FLON1SPR; +IBUP-1022 PO; +LAMI1TAB8 PO; +LITH300C PO; +NAPR-50 PO; -NAPR500T PO; -NICO21DI5 TD; +NICO21DI6 TD; +TRAZ-160 PO; -VITA1CAP40 PO; +VITA50005 PO; +ZANT150T15 PO; -ZANT1TAB PO; -ZOFR20TA PO; +ZOFR4TAB14 PO; +ZOFR4TAB16 PO; +ZYPR15TA PO
[2018-11-05 15:14] LABS: ALBUMIN 3.6 GM/DL (3.2-5.2); ALT/SGPT 21 U/L (12-78); BILIRUBIN,DIRECT < 0.1 MG/DL (0.0-0.2); BILIRUBIN,TOTAL 0.3 MG/DL (0.2-1.0); VALPROIC ACID (DEPAKOTE) 78.4 UG/ML (50.0-100.0)
== END ==
LOC: M LAB 14:12
PROVIDERS: ATTEND Nurse Practitioner Family
DX: F63.81 Intermittent explosive disorder (principal)

== ENCOUNTER → 2019-07-01 | Outpatient (REF) | payer MEDICAID, OTHER, SELFPAY ==
[~2019-07-01] MED LIST changes: +IBUP600T42 PO; -IBUP60TA PO; -NAPR-50 PO; +NAPR-837 PO; -TRAZ-160 PO; +TRAZ-252 PO; -VICO5TAB16 PO; +VICO5TAB17 PO
[2019-07-01 14:06] LABS: APPEARANCE, URINE CLEAR (CLEAR); BACTERIA, URINE AUTO NEGATIVE (NEGATIVE); BILIRUBIN, URINE AUTO NEGATIVE (NEGATIVE); BLOOD, URINE BLOOD NEGATIVE (NEGATIVE); COLOR, URINE YELLOW (YELLOW); GLUCOSE, URINE (UA) AUTO NEGATIVE (NEGATIVE); KETONE, URINE AUTO TRACE mg/dL (NEGATIVE); LEUKOCYTE ESTERASE, URINE AUTO NEGATIVE (NEGATIVE); MUCUS, URINE SMALL (NEGATIVE); NITRITE, URINE AUTO NEGATIVE (NEGATIVE); PROTEIN, URINE AUTO NEGATIVE (NEGATIVE); RBC, URINE AUTO 3 /HPF (0-3); SPECIFIC GRAVITY URINE AUTO 1.021 (1.002-1.035); SQUAMOUS EPITHELIAL CELL UR AU 0 /HPF (0-6); UROBILINOGEN, URINE AUTO 0.2 mg/dL (0.0-2.0); WBC, URINE AUTO 1 /HPF (0-3)
[2019-07-01 14:29] LABS: ALBUMIN 3.6 GM/DL (3.2-5.2); ALT/SGPT 40 U/L (12-78); BILIRUBIN,TOTAL 0.3 MG/DL (0.2-1.0); BLOOD UREA NITROGEN 17 MG/DL (7-18); CALCIUM LEVEL 9.5 MG/DL (8.5-10.1); CARBON DIOXIDE LEVEL 28 MEQ/L (21-32); CHLORIDE LEVEL 108 MEQ/L (98-107); CREATININE FOR GFR 0.91 MG/DL (0.70-1.30); GLOMERULAR FILTRATION RATE > 60.0 (>60); GLUCOSE, FASTING 106 MG/DL (70-100); POTASSIUM SERUM 4.7 MEQ/L (3.5-5.1); SODIUM LEVEL 142 MEQ/L (136-145); TOTAL PROTEIN 6.8 GM/DL (6.4-8.2)
== END ==
LOC: M LAB REF 13:30
PROVIDERS: ATTEND Surgery
DX: Z79.891 Long term (current) use of opiate analgesic (principal); F25.0 Schizoaffective disorder, bipolar type

== ENCOUNTER → 2019-08-16 | Outpatient (REF) | payer OTHER | LOC: M LAB REF 13:09 | PROVIDERS: ATTEND Surgery | DX: Z51.81 Encounter for therapeutic drug level monitoring (principal) ==

== ENCOUNTER 2022-12-16 21:09 | Emergency (ER) | payer OTHER ==
[~2022-12-16] VITALS: Ht 180.3 cm; Wt 77.3 kg
[~2022-12-16 21:09] MED LIST changes: +CYCL-707 PO; -CYCL10TA PO; -DOXY100C PO; +DOXY100C3 PO
[2022-12-16 21:21] VITALS: BP 118/82
[2022-12-16 22:28] LABS: APPEARANCE, URINE MANUAL HAZY (CLEAR); COLOR, URINE MANUAL LT YELLOW (YELLOW)
[2022-12-16 22:29] LABS: BILIRUBIN, URINE MANUAL NEGATIVE (NEGATIVE); BLOOD URINE MANUAL POSITIVE (NEGATIVE); GLUCOSE, URINE (UA) MANUAL NEGATIVE (NEGATIVE); KETONE, URINE MANUAL NEGATIVE (NEGATIVE); LEUKOCYTE ESTERASE, URINE MAN POSITIVE (NEGATIVE); NITRITE, URINE MANUAL NEGATIVE (NEGATIVE); PH,URINE MAN 7.5 UNITS (5.0 - 7.0); PROTEIN, URINE MANUAL TRACE mg/dL (NEGATIVE); UROBILINOGEN, URINE MANUAL NORMAL (NORMAL)
[2022-12-16 22:35] LABS: WBC, URINE TNTC /hpf (0-3)
[2022-12-16 22:36] LABS: BACTERIA, URINE MOD AMOUNT; SQUAMOUS EPITHELIAL CELL URINE SMALL AMOUNT /hpf (SMALL AMT)
[2022-12-16 22:37] LABS: AMORPHOUS SEDIMENT, URINE SMALL AMOUNT (NEGATIVE); HYALINE CAST, URINE NONE SEEN /lpf (0-1)
== END 2022-12-16 23:45 | disposition left against medical advice (07) ==
LOC: M ED 21:09
DX: Z53.21 Procedure and treatment not carried out due to patient leaving prior to being seen by health care provider (principal)

== ENCOUNTER 2022-12-18 18:06 | Emergency (ER) | payer MEDICAID, OTHER ==
[~2022-12-18] VITALS: Ht 180.3 cm; Wt 77.3 kg
[2022-12-18] MEDS ORDERED: NS 2,320 ML in IV 1 EA IV ONE (18:30)
[2022-12-18] MEDS ORDERED: PIPERACILLIN/TAZOBACTAM SOD 4.5 GM in D5W MINI-BAG PLUS 50 ML IV ONE (18:30)
[2022-12-18 19:09] LABS: HEMATOCRIT 38.8 % (42.0-52.0); HEMOGLOBIN 12.9 g/dl (13.5-17.5); MEAN CORPUSCULAR HEMOGLOBIN 30.1 pg (27.0-33.0); MEAN CORPUSCULAR HGB CONC 33.2 g/dl (32.0-36.5); MEAN CORPUSCULAR VOLUME 90.4 fl (80.0-96.0); PLATELET COUNT, AUTOMATED 211 10^3/uL (150-450); RED BLOOD COUNT 4.29 10^6/uL (4.30-6.10); WHITE BLOOD COUNT 17.4 10^3/uL (4.0-10.0)
[2022-12-18 19:24] LABS: ALBUMIN 2.4 G/DL (3.2-5.2); BILIRUBIN,DIRECT 0.2 MG/DL (<0.4); BILIRUBIN,TOTAL 0.3 MG/DL (0.3-1.2); CALCIUM LEVEL 8.1 MG/DL (8.5-10.1); CREATININE FOR GFR 5.72 MG/DL (0.70-1.30); GLOMERULAR FILTRATION RATE 11.4 (>60); POTASSIUM SERUM 5.2 MMOL/L (3.5-5.1); TOTAL PROTEIN 6.5 G/DL (5.7-8.2)
[2022-12-18] MEDS ORDERED: MORPHINE 4 MG/ML 1ML VIAL IV ONE (19:35)
[2022-12-18] MEDS ORDERED: ACETAMINOPHEN 325 MG TAB PO ONE (19:35)
[2022-12-18] MEDS ORDERED: ONDANSETRON 4MG 2ML VIAL IV ONE (19:35)
[2022-12-18 19:53] LABS: RSV AMPLIFICATION NEGATIVE (NEGATIVE)
[2022-12-18 20:11] LABS: LYMPHOCYTES 2 % (16-44); METAMYELOCYTES 1 % (0-0); NEUTROPHILS 89 % (28-66)
[2022-12-18 20:12] LABS: TOXIC GRANULATION 1+; TOXIC VACUOLATION 3+
[2022-12-18 20:13] LABS: PLATELET ESTIMATE NORMAL (NORMAL)
[2022-12-18] MEDS ORDERED: NOREPINEPHRINE 4MG IN D5 250ML 4 MG in IV 1 EA IV SCH ×2 (22:10)
[2022-12-18] MEDS ORDERED: NS 1,000 ML IV ONE (22:30)
[2022-12-18 23:00] VITALS: BP 89/54
[2022-12-18] MEDS ORDERED: MORPHINE 2 MG/ML 1ML VIAL IV ONE (23:20)
== END 2022-12-18 23:40 | disposition home or self-care (01) ==
LOC: M ED 18:06
DX: N13.2 Hydronephrosis with renal and ureteral calculous obstruction (principal); A41.9 Sepsis, unspecified organism; M48.061 Spinal stenosis, lumbar region without neurogenic claudication; I51.7 Cardiomegaly; I27.20 Pulmonary hypertension, unspecified; F31.9 Bipolar disorder, unspecified; K21.9 Gastro-esophageal reflux disease without esophagitis; F11.10 Opioid abuse, uncomplicated; B19.20 Unspecified viral hepatitis C without hepatic coma; Z79.899 Other long term (current) drug therapy
CPT/HCPCS: 36556; 71045; 74176; 80048; 80076; 81000; 81015; 82803; 83605; 83690; 85025; 87040; 87077; 87088; 87186; 87631; 93005; 93041; 96361; 96365; 96366; 96375; 96376; 99291; 99292; J2270; J2405; J2543

== ENCOUNTER 2023-06-01 16:03 | Emergency (ER) | payer OTHER ==
[~2023-06-01] VITALS: Ht 175.3 cm; Wt 71.2 kg
[2023-06-01 18:09] LABS: BASO % 0.3 % (0.0-1.0); EOS # 0.3 10^3/uL (0.0-0.5); EOS % 3.7 % (0.0-3.0); HEMATOCRIT 38.5 % (42.0-52.0); HEMOGLOBIN 12.6 g/dl (13.5-17.5); LYMPH # 1.7 10^3/uL (1.5-5.0); LYMPH % 22.8 % (24.0-44.0); MEAN CORPUSCULAR HEMOGLOBIN 31.3 pg (27.0-33.0); MEAN CORPUSCULAR HGB CONC 32.7 g/dl (32.0-36.5); MEAN CORPUSCULAR VOLUME 95.8 fl (80.0-96.0); MONO # 0.7 10^3/uL (0.0-0.8); MONO % 9.5 % (2.0-8.0); NEUTROPHILS # 4.8 10^3/uL (1.5-8.5); NEUTROPHILS % 63.4 % (36.0-66.0); PLATELET COUNT, AUTOMATED 259 10^3/uL (150-450); RED BLOOD COUNT 4.02 10^6/uL (4.30-6.10); WHITE BLOOD COUNT 7.5 10^3/uL (4.0-10.0)
[2023-06-01 18:19] LABS: ALBUMIN 3.6 G/DL (3.2-5.2); BILIRUBIN,DIRECT 0.2 MG/DL (<0.4); BILIRUBIN,TOTAL 0.5 MG/DL (0.3-1.2); CALCIUM LEVEL 9.2 MG/DL (8.5-10.1); CREATININE FOR GFR 1.72 MG/DL (0.70-1.30); GLOMERULAR FILTRATION RATE 45.8 (>60); POTASSIUM SERUM 4.4 MMOL/L (3.5-5.1); TOTAL PROTEIN 6.7 G/DL (5.7-8.2)
[2023-06-01] MEDS ORDERED: ACETAMINOPHEN 1000MG 100ML IV BAG IV ONE (23:50)
[2023-06-02] MEDS ORDERED: cefTRIAXone SOD 1 GM in D5W MINI-BAG PLUS 50 ML IV ONE (01:50)
[2023-06-02] MEDS ORDERED: TRAM50TA2 PO (04:33)
[2023-06-02 05:00] VITALS: BP 138/74; TEMP 98.4; O2SAT 97
== END 2023-06-02 05:10 | disposition home or self-care (01) ==
LOC: M ED 16:03
DX: R10.9 Unspecified abdominal pain (principal); R31.9 Hematuria, unspecified; N13.2 Hydronephrosis with renal and ureteral calculous obstruction; I10 Essential (primary) hypertension; K21.9 Gastro-esophageal reflux disease without esophagitis; B18.2 Chronic viral hepatitis C; Z87.442 Personal history of urinary calculi; F17.200 Nicotine dependence, unspecified, uncomplicated
CPT/HCPCS: 74176; 80048; 80076; 81001; 83690; 85025; 87086; 93041; 96365; 96375; 99284; J0131; J0696

== ENCOUNTER → 2023-06-26 | Outpatient (REF) | payer OTHER ==
[~2023-06-26] MED LIST changes: +TRAM50TA2 PO
[2023-06-26 18:03] LABS: APPEARANCE, URINE CLOUDY (CLEAR); BACTERIA, URINE AUTO NEGATIVE (NEGATIVE); BILIRUBIN, URINE AUTO NEGATIVE (NEGATIVE); BLOOD, URINE BLOOD 3+ (NEGATIVE); COLOR, URINE AMBER (YELLOW); GLUCOSE, URINE (UA) AUTO 1+ mg/dL (NEGATIVE); KETONE, URINE AUTO NEGATIVE (NEGATIVE); LEUKOCYTE ESTERASE, URINE AUTO 2+ (NEGATIVE); MUCUS, URINE SMALL (NEGATIVE); NITRITE, URINE AUTO NEGATIVE (NEGATIVE); PROTEIN, URINE AUTO 3+ mg/dL (NEGATIVE); RBC, URINE AUTO TNTC /HPF (0-3); SPECIFIC GRAVITY URINE AUTO 1.016 (1.002-1.035); SQUAMOUS EPITHELIAL CELL UR AU 0 /HPF (0-6); UROBILINOGEN, URINE AUTO 0.2 mg/dL (0.0-2.0); WBC, URINE AUTO TNTC /HPF (0-3)
== END ==
LOC: M SMT 17:18
PROVIDERS: ATTEND Physician Assistant
DX: N13.39 Other hydronephrosis (principal)

== ENCOUNTER → 2024-08-03 | Outpatient (REF) | payer OTHER | LOC: M SMT 09:51 | PROVIDERS: ATTEND Urology | DX: N20.0 Calculus of kidney (principal); Z96.0 Presence of urogenital implants; Z01.818 Encounter for other preprocedural examination; N39.0 Urinary tract infection, site not specified ==

== ENCOUNTER → 2024-08-12 | Outpatient (CLI) | payer OTHER ==
[~2024-08-12] MED LIST changes: +FLOM0.4C39 PO; +KETO10TAB PO
[2024-08-12 17:26] LABS: HEMATOCRIT 45.3 % (42.0-52.0); HEMOGLOBIN 15.4 g/dl (13.5-17.5); MEAN CORPUSCULAR HEMOGLOBIN 31.8 pg (27.0-33.0); MEAN CORPUSCULAR VOLUME 93.6 fl (80.0-96.0); PLATELET COUNT, AUTOMATED 232 10^3/uL (150-450); RED BLOOD COUNT 4.84 10^6/uL (4.30-6.10); WHITE BLOOD COUNT 7.2 10^3/uL (4.0-10.0)
[2024-08-12 17:53] LABS: BLOOD UREA NITROGEN 28 MG/DL (9-23); CALCIUM LEVEL 9.4 MG/DL (8.5-10.1); CARBON DIOXIDE LEVEL 22 MMOL/L (20-31); CHLORIDE LEVEL 112 MMOL/L (98-107); CREATININE FOR GFR 1.35 MG/DL (0.70-1.30); GLOMERULAR FILTRATION RATE > 60.0 (>60); GLUCOSE, FASTING 98 MG/DL (60-100); POTASSIUM SERUM 5.4 MMOL/L (3.5-5.1); SODIUM LEVEL 141 MMOL/L (136-145)
== END ==
LOC: M RAD 16:05
PROVIDERS: ATTEND Urology
DX: Z01.818 Encounter for other preprocedural examination (principal); N20.0 Calculus of kidney; Z96.0 Presence of urogenital implants

== ENCOUNTER 2024-08-15 14:48 | Day surgery (SDC) | payer OTHER ==
[~2024-08-15] VITALS: Ht 177.8 cm; Wt 77.9 kg
[~2024-08-15 14:48] MED LIST changes: +ACETAMINOPHEN 1000MG 100ML IV BAG As Ordered ONE; -FLOM0.4C39 PO; -KETO10TAB PO; +LIDOCAINE 2% 100MG/5ML SDV (FOR ANES.) As Ordered ONE; +MIDAZOLAM INJ 2MG/2ML VIAL As Ordered ONE; +ONDANSETRON 4MG 2ML VIAL As Ordered ONE; +fentaNYL 100 MCG/2 ML INJECTION As Ordered ONE; +propofoL 200 MG/20 ML VIAL As Ordered ONE
[2024-08-15] MEDS ORDERED: ROCURONIUM BROMIDE 50MG/5ML VIAL As Ordered ONE (15:07)
[2024-08-15] MEDS ORDERED: SUGAMMADEX SODIUM 500 MG/5 ML VIAL (BRIDION) As Ordered ONE (15:08)
[2024-08-15] MEDS ORDERED: ceFAZolin 1GM VIAL As Ordered ONE (15:55)
[2024-08-15] MEDS: ceFAZolin SOD 2 GM in IV 1 EA IV ONE (15:58)
[2024-08-15] MEDS ORDERED: KETOROLAC 60MG 2ML VIAL As Ordered ONE (16:36)
[2024-08-15] MEDS: ISOVUE-300 61% 100ML VIAL As Ordered ONE (16:45)
[2024-08-15] MEDS ORDERED: fentaNYL 100 MCG/2 ML INJECTION IV PRN (17:55)
[2024-08-15] MEDS ORDERED: ONDANSETRON 4MG 2ML VIAL IV PRN ×2 (17:55→18:10)
[2024-08-15] MEDS: LR 1,000 ML IV SCH (17:55)
[2024-08-15] MEDS: HYDROMORPHONE HCL 0.5 MG/ 0.5 ML SYRINGE IV PRN (18:14)
[2024-08-15] MEDS: oxyCODONE 5MG TAB PO PRN (18:14)
[2024-08-15 19:45] VITALS: BP 146/90; TEMP 98.1; O2SAT 99
[2024-08-15 20:15] VITALS: BP 137/88; TEMP 97.5; O2SAT 95
[2024-08-15 20:45] VITALS: BP 135/86; TEMP 98.2; O2SAT 98
[2024-08-15] MEDS: DOCUSATE SODIUM 100MG CAPSULE PO SCH (20:53)
[2024-08-15 21:45] VITALS: BP 133/85; TEMP 98.2; O2SAT 97
[2024-08-15 22:45] VITALS: BP 135/96; TEMP 97.7; O2SAT 96
[2024-08-15 23:45] VITALS: BP 135/82; TEMP 98.1; O2SAT 95
[2024-08-16 00:45] VITALS: BP 135/81; TEMP 97.9; O2SAT 96
[2024-08-16 04:45] VITALS: BP 138/79; TEMP 98.1; O2SAT 97
[2024-08-16] MEDS: PERCOCET 5MG/325MG TAB PO PRN (05:09)
[2024-08-16] MEDS: ACETAMINOPHEN 325 MG TAB PO PRN (07:19)
[2024-08-16 08:45] VITALS: BP 135/75; TEMP 98.8; O2SAT 94
[2024-08-16 12:45] VITALS: BP 159/90; TEMP 99.1; O2SAT 98
[2024-08-16] MEDS ORDERED: FLOM0.4C39 PO (16:47)
[2024-08-16] MEDS ORDERED: KETO10TAB PO (16:47)
== END 2024-08-16 17:49 | disposition home or self-care (01) ==
LOC: M SDC 14:48 → UNDOADMIN 18:09 → M RR INP 18:09 → M MSPAV 19:29 → M RR INP 19:29 → M MSPAV 19:30 → UNDODISIN 08-16 17:49 → M SDC 08-16 17:49
PROVIDERS: ATTEND Urology
DX: N20.0 Calculus of kidney (principal); N42.1 Congestion and hemorrhage of prostate; F43.10 Post-traumatic stress disorder, unspecified; F31.9 Bipolar disorder, unspecified; F41.9 Anxiety disorder, unspecified; M54.9 Dorsalgia, unspecified; F17.200 Nicotine dependence, unspecified, uncomplicated; Z88.5 Allergy status to narcotic agent; Z88.8 Allergy status to other drugs, medicaments and biological substances
CPT/HCPCS: 52332; 52352; 52356; 74420; 82365; C1769; C1894; C2617; J0131; J0690; J1100; J1171; J1885; J2250; J2405; J3010; Q9967

== ENCOUNTER 2024-09-12 13:15 | Day surgery (SDC) | payer OTHER ==
[~2024-09-12] VITALS: Ht 180.3 cm; Wt 82.8 kg
[~2024-09-12 13:15] MED LIST changes: -ACETAMINOPHEN 1000MG 100ML IV BAG As Ordered ONE; +FLOM0.4C39 PO; +KETO10TAB PO; +TAMS1CAP17 PO
[2024-09-12] MEDS ORDERED: NS 1,000 ML IV SCH (13:20)
[2024-09-12] MEDS: CIPROFLOXACIN 500MG TABLET PO ONE (13:38)
[2024-09-12] MEDS ORDERED: dexmedeTOMIDine (4MCG/ML)200MCG/50ML BTL (PRECEDEX) As Ordered ONE (14:24)
[2024-09-12] MEDS: LIDOCAINE 2% 5ML JELLY UROJET As Ordered ONE (14:38)
[2024-09-12 14:47] VITALS: BP 109/66; TEMP 98.1; O2SAT 97
== END 2024-09-12 15:41 | disposition home or self-care (01) ==
LOC: M SDC 13:15
PROVIDERS: ATTEND Urology
DX: Z46.6 Encounter for fitting and adjustment of urinary device (principal); Z79.899 Other long term (current) drug therapy; F17.210 Nicotine dependence, cigarettes, uncomplicated
CPT/HCPCS: 52310; A4215; C1769; J2250; J2405; J3010